=== PATIENT | female | born 1995 | race Hispanic/Latino ===

== ENCOUNTER 2019-10-01 08:05 | Outpatient (CLI) | payer OTHER ==
[2019-10-01 18:24] LABS: SARS-CoV-2 MS2 Positive; SARS-CoV-2 N Gene Negative; SARS-CoV-2 S Gene Negative; SARS-CoV-2 by NAA Not Detected (NotDetected); SARS-CoV-2 orf1ab Negative
== END 2019-10-01 08:06 | disposition home or self-care (01) ==
LOC: LABSCS 08:05
PROVIDERS: ATTEND Obstetrics & Gynecology
DX: Z20.828 Contact with and (suspected) exposure to other viral communicable diseases (principal)
CPT/HCPCS: 87635; U0003

== ENCOUNTER 2021-06-04 15:41 | Outpatient (CLI) | payer BC | END 2021-06-04 15:42 | disposition home or self-care (01) | LOC: DTY/OP 15:41 | PROVIDERS: ATTEND Specialist | DX: E66.01 Morbid (severe) obesity due to excess calories (principal) | CPT/HCPCS: 97802 ==

== ENCOUNTER 2021-07-02 14:16 | Outpatient (CLI) | payer BC | END 2021-07-02 14:17 | disposition home or self-care (01) | LOC: DTY/OP 14:16 | PROVIDERS: ATTEND Specialist | DX: E66.01 Morbid (severe) obesity due to excess calories (principal) | CPT/HCPCS: 97802 ==

== ENCOUNTER 2021-08-02 10:48 | Outpatient (CLI) | payer BC | END 2021-08-02 10:49 | disposition home or self-care (01) | LOC: DTY/OP 10:48 | PROVIDERS: ATTEND Specialist | DX: E66.01 Morbid (severe) obesity due to excess calories (principal) | CPT/HCPCS: 97802 ==

== ENCOUNTER 2021-08-30 10:46 | Outpatient (CLI) | payer BC | END 2021-08-30 10:47 | disposition home or self-care (01) | LOC: DTY/OP 10:46 | PROVIDERS: ATTEND Specialist | DX: E66.01 Morbid (severe) obesity due to excess calories (principal) | CPT/HCPCS: 97802 ==

== ENCOUNTER 2021-12-17 10:00 | Inpatient (IN) | payer BC ==
[2021-12-22] MEDS ORDERED: Scopolamine 1.5 mg/72 hour Patch ONE (06:20)
[2021-12-22] MEDS ORDERED: Ketorolac Tromethamine 30 MG/ML VIAL ONE (06:20)
[2021-12-22] MEDS ORDERED: Heparin 5,000 UNITS/ML VIAL ONE (06:20)
[2021-12-22] MEDS ORDERED: Acetaminophen 500 MG TAB ONE (06:20)
[2021-12-22] MEDS ORDERED: SUGAMMADEX SODIUM 200 MG/2 ML VIAL ONE (06:37)
[2021-12-22] MEDS ORDERED: fentaNYL PF 100 MCG/2 ML SYRINGE ONE (06:37)
[2021-12-22] MEDS ORDERED: HYDROmorphone 0.5 MG/0.5 ML SYRINGE ONE ×2 (06:37→09:44)
[2021-12-22] MEDS ORDERED: Bupivacaine/Epinephrine 0.25% 30 ML VIAL ONE ×2 (06:44→08:05)
[2021-12-22] MEDS ORDERED: Midazolam HCl 2 mg/2 ml Vial ONE (07:19)
[2021-12-22] MEDS ORDERED: cefOXitin 2 GM VIAL ONE (07:21)
[2021-12-22] MEDS ORDERED: Sodium Chloride 0.9% 100 ML ONE (07:21)
[2021-12-22] MEDS ORDERED: PROPOFOL 200 MG/20 ML VIAL ONE (07:36)
[2021-12-22] MEDS ORDERED: NEOSTIGMINE 3 MG/3 ML SYR 3 MG/3 ML SYRINGE ONE (07:36)
[2021-12-22] MEDS ORDERED: ePHEDrine 50 MG/ML VIAL ONE (07:36)
[2021-12-22] MEDS ORDERED: Glycopyrrolate 0.2 MG/ML 5 ML SYRINGE ONE (07:36)
[2021-12-22] MEDS ORDERED: Ondansetron PF 4 MG/2 ML Vial ONE (07:36)
[2021-12-22] MEDS ORDERED: Rocuronium Bromide 10 MG/ML (10ML VIAL) ONE (07:36)
[2021-12-22] MEDS ORDERED: PHENYLEPHRINE-NS 100 MCG/ML 10 ML SYRINGE ONE (07:36)
[2021-12-22] MEDS ORDERED: Vecuronium 10 MG VIAL ONE (07:36)
[2021-12-22] MEDS ORDERED: Dexamethasone 20 MG/5 ML VIAL ONE (07:36)
[2021-12-22 07:45] LABS: SARS-CoV-2 NAA Rapid Test Not Detected (NotDetected)
[2021-12-22] MEDS ORDERED: Promethazine HCl 25 MG/ML VIAL ONE (09:33)
[2021-12-22] MEDS ORDERED: hydrALAZINE 20 MG/ML VIAL SLOW IVP PRN (09:36)
[2021-12-22] MEDS ORDERED: Promethazine HCl 25 MG/ML VIAL IM PRN (09:36)
[2021-12-22] MEDS ORDERED: Ondansetron PF 4 MG/2 ML Vial IVP PRN (09:36)
[2021-12-22] MEDS ORDERED: diphenhydrAMINE 50 MG/ML VIAL IVP PRN (09:36)
[2021-12-22] MEDS ORDERED: Acetaminophen 500 MG TAB PO PRN (09:41)
[2021-12-22] MEDS ORDERED: traMADol HCl 50 MG TAB PO PRN (09:41)
[2021-12-22] MEDS ORDERED: Morphine 4 MG/ML VIAL SLOW IVP PRN (09:56)
[2021-12-22] MEDS: Ketorolac Tromethamine 30 MG/ML VIAL IVP SCH ×3 (11:43→23:52)
[2021-12-22 11:49] VITALS: BMI 50.1
[2021-12-22] MEDS ORDERED: FLU VACC QS2022-23(6MOS UP)/PF 60 MCG/0.5 ML SYRINGE IM ONE (12:00)
[2021-12-22] MEDS: Morphine 4 MG/ML VIAL SLOW IVP PRN ×2 (13:53→20:24)
[2021-12-22] MEDS: Hydrocodone-Acetamin 15 ML UDCUP PO PRN (20:22)
[2021-12-22] MEDS ORDERED: Enoxaparin Sodium 40 MG/0.4 ML SYRINGE SC SCH (21:00)
[2021-12-23] MEDS: Ketorolac Tromethamine 30 MG/ML VIAL IVP SCH ×2 (05:55→11:40)
[2021-12-23 06:01] LABS: #Lymphocytes 2.1 thou/uL (1.20-3.40); #Monocytes 0.9 thou/uL (0.11-0.59); #Neutrophils 7.6 thou/uL (1.40-6.50); %Monocytes 8.4 % (0.0-10.0); %Neutrophils 71.6 % (42.0-75.0); Hemoglobin 10.2 g/dL (12.0-16.0); Mean Corpuscular Hemoglobin 23.7 pg (27.0-31.0); Mean Corpuscular Volume 76.4 fl (78.0-98.0); Mean Platelet Volume 7.7 fL (7.4-10.4); Platelet Count 276 10x3/uL (130-400); RBC Distribution Width 15.5 % (11.5-14.5); White Blood Cell (WBC) Count 10.6 10x3/uL (4.8-10.8)
[2021-12-23 06:22] LABS: Anion Gap 11 mmol/L (10-20); BUN (Urea Nitrogen) 4 mg/dL (7.0-18.7); Calc. Creatinine Clearance 252 mL/min (70-130); Carbon Dioxide 24 mmol/L (22-29); Chloride 105 mmol/L (98-107); Estimated GFR 124; Glucose 97 mg/dL (70-105); Potassium 3.8 mmol/L (3.5-5.1); Sodium 136 mmol/L (136-145)
[2021-12-23] MEDS: Hydrocodone-Acetamin 15 ML UDCUP PO PRN (08:38)
[2021-12-23] MEDS ORDERED: Pantoprazole 40 MG VIAL IVP SCH (09:00)
[2021-12-23 12:35] VITALS: BP 128/82; TEMP 98.1
== END 2021-12-23 15:50 | disposition home or self-care (01) | DRG 621 ==
LOC: SURG A 12-22 05:54 → SURG B 12-22 11:16
PROVIDERS: ADMIT Specialist; ATTEND Specialist
PROC: 0DB64Z3 Excision of Stomach, Percutaneous Endoscopic Approach, Vertical (ICD-10-PCS; principal; 2021-12-22)
DX: E66.01 Morbid (severe) obesity due to excess calories (principal); Z68.43 Body mass index [BMI] 50.0-59.9, adult; Z20.822 Contact with and (suspected) exposure to COVID-19; Z90.49 Acquired absence of other specified parts of digestive tract
CPT/HCPCS: 36415; 80048; 85025; 88307; 88342; C9113; J0694; J1100; J1170; J1644; J1650; J1885; J2250; J2270; J2405; J2550; J2704; J3490; U0002